=== PATIENT | female | born 1950 | race Caucasian/White ===

== ENCOUNTER → 2020-11-18 14:53 | Outpatient (BNVA) | payer MEDICARE, BC, SELFPAY | PROVIDERS: PCP Surgery; Visit Provider Specialist | DX: G20 Parkinson's disease (principal) | CPT/HCPCS: 99204 ==

== ENCOUNTER → 2021-02-23 14:36 | Outpatient (BNVA) | payer MEDICARE, BC, SELFPAY | PROVIDERS: PCP Surgery; Visit Provider Specialist | DX: G20 Parkinson's disease (principal); G31.84 Mild cognitive impairment of uncertain or unknown etiology | CPT/HCPCS: 96116; 99214 ==

== ENCOUNTER → 2021-04-21 15:00 | Outpatient (BNVA) | payer MEDICARE, BC, SELFPAY | PROVIDERS: PCP Surgery; Visit Provider Specialist | DX: G20 Parkinson's disease (principal) | CPT/HCPCS: 99214 ==

== ENCOUNTER → 2021-10-06 12:45 | Outpatient (BNVA) | payer MEDICARE, BC, SELFPAY | PROVIDERS: PCP Surgery; Visit Provider Specialist | DX: G20 Parkinson's disease (principal); M17.11 Unilateral primary osteoarthritis, right knee | CPT/HCPCS: 99214 ==

== ENCOUNTER → 2022-05-04 13:13 | Outpatient (BNVA) | payer MEDICARE, BC, SELFPAY | PROVIDERS: PCP Surgery; Visit Provider Specialist | DX: G20 Parkinson's disease (principal) | CPT/HCPCS: 99214 ==

== ENCOUNTER → 2022-11-16 14:21 | Outpatient (BNVA) | payer MEDICARE, BC, SELFPAY | PROVIDERS: PCP Surgery; Visit Provider Specialist | DX: G20 Parkinson's disease (principal); M17.12 Unilateral primary osteoarthritis, left knee; M25.362 Other instability, left knee | CPT/HCPCS: 99214 ==

== ENCOUNTER → 2023-08-09 13:33 | Outpatient (BNVA) | payer MEDICARE, BC, SELFPAY | PROVIDERS: PCP Surgery; Visit Provider Specialist | DX: G20.A1 Parkinson's disease without dyskinesia, without mention of fluctuations; G30.9 Alzheimer's disease, unspecified; F02.80 Dementia in other diseases classified elsewhere, unspecified severity, without behavioral disturbance, psychotic disturbance, mood disturbance, and anxiety; M21.161 Varus deformity, not elsewhere classified, right knee; M25.361 Other instability, right knee; M25.362 Other instability, left knee; M21.41 Flat foot [pes planus] (acquired), right foot; M21.42 Flat foot [pes planus] (acquired), left foot | CPT/HCPCS: 96116; 99214; 99215 ==

== ENCOUNTER → 2024-08-08 14:05 | Outpatient (BNVA) | payer MEDICARE, BC, SELFPAY | PROVIDERS: PCP Surgery; Visit Provider Specialist | DX: G20.A1 Parkinson's disease without dyskinesia, without mention of fluctuations (principal); M17.12 Unilateral primary osteoarthritis, left knee; M25.369 Other instability, unspecified knee; G30.9 Alzheimer's disease, unspecified; F02.80 Dementia in other diseases classified elsewhere, unspecified severity, without behavioral disturbance, psychotic disturbance, mood disturbance, and anxiety | CPT/HCPCS: 99214 ==